=== PATIENT | male | born 1995 | race Caucasian/White ===

== ENCOUNTER 2020-11-12 19:46 | Emergency (ER) | payer SELFPAY ==
[~2020-11-12 19:46] MED LIST: Iopamidol 370 76% 100 ML VIAL ONE
[2020-11-12 20:33] LABS: #Basophils 0.1 thou/uL (0.0-0.2); #Eosinphils 0.4 thou/uL (0.0-0.7); #Lymphocytes 4.2 thou/uL (1.20-3.40); #Monocytes 0.9 thou/uL (0.11-0.59); #Neutrophils 9.3 thou/uL (1.40-6.50); %Basophils 0.9 % (0.0-1.0); %Eosinophils 2.7 % (0.0-10.0); %Lymphocytes 28.1 % (21.0-51.0); %Monocytes 5.8 % (0.0-10.0); %Neutrophils 62.4 % (42.0-75.0); Hemoglobin 16.7 g/dL (14.0-18.0); Mean Corpuscular HGB CONC 34.1 g/dL (32.0-36.0); Mean Corpuscular Hemoglobin 29.3 pg (27.0-31.0); Mean Platelet Volume 9.7 fL (7.4-10.4); Platelet Count 296 thou/uL (130-400); RBC Distribution Width 10.9 % (11.5-14.5); Red Blood Cell (RBC) Count 5.69 mill/uL (4.70-6.10); White Blood Cell (WBC) Count 14.9 thou/uL (4.8-10.8)
[2020-11-12 20:49] LABS: ALT (SGPT) 16 U/L (8-55); AST (SGOT) 15 U/L (5-34); Alkaline Phosphatase 61 U/L (40-110); Anion Gap 17 mmol/L (10-20); BUN (Urea Nitrogen) 10 mg/dL (8.9-20.6); Bilirubin, Total 0.3 mg/dL (0.2-1.2); CK (CPK) 95 U/L (30-200); Calc. Creatinine Clearance 0 mL/min (70-130); Calcium 9.9 mg/dL (7.8-10.44); Carbon Dioxide 27 mmol/L (22-29); Chloride 103 mmol/L (98-107); Globulin 3.4 g/dL (2.4-3.5); Glucose 98 mg/dL (70-105); Lipase 24 U/L (8-78); Potassium 3.7 mmol/L (3.5-5.1); Protein, Total 8.4 g/dL (6.0-8.3); Sodium 143 mmol/L (136-145)
[2020-11-12 20:56] LABS: PTT 32.5 sec (22.9-36.1); Prothrombin Time 13.1 sec (12.0-14.7)
== END 2020-11-12 22:19 | disposition home or self-care (01) ==
LOC: BURERS 19:46
DX: R07.89 Other chest pain (principal); Z79.01 Long term (current) use of anticoagulants; F17.210 Nicotine dependence, cigarettes, uncomplicated
CPT/HCPCS: 71275; 80053; 82550; 83690; 84484; 85025; 85610; 85730; 93005; Q9967

== ENCOUNTER 2020-12-29 10:32 | Emergency (ER) | payer OTHER, SELFPAY | END 2020-12-29 10:52 | disposition home or self-care (01) | LOC: BURERS 10:32 | DX: R51.9 Headache, unspecified (principal); F17.210 Nicotine dependence, cigarettes, uncomplicated; Z79.01 Long term (current) use of anticoagulants | CPT/HCPCS: 99283 ==

== ENCOUNTER 2021-04-16 21:03 | Emergency (ER) | payer SELFPAY | END 2021-04-16 21:20 | disposition left against medical advice (07) | LOC: BURERS 21:03 | DX: Z53.21 Procedure and treatment not carried out due to patient leaving prior to being seen by health care provider (principal) ==

== ENCOUNTER 2022-11-17 21:14 | Emergency (ER) | payer OTHER, SELFPAY | END 2022-11-17 21:42 | disposition home or self-care (01) | LOC: BURERS 21:14 | DX: R51.9 Headache, unspecified (principal); F17.210 Nicotine dependence, cigarettes, uncomplicated | CPT/HCPCS: 99283 ==

== ENCOUNTER 2022-12-15 20:46 | Emergency (ER) | payer OTHER ==
[2022-12-15] MEDS ORDERED: Ibuprofen 800 MG TAB ONE (21:15)
== END 2022-12-15 21:18 | disposition home or self-care (01) ==
LOC: BURERS 20:46
DX: S16.1XXA Strain of muscle, fascia and tendon at neck level, initial encounter (principal); F17.210 Nicotine dependence, cigarettes, uncomplicated; X50.0XXA Overexertion from strenuous movement or load, initial encounter
CPT/HCPCS: 99283

== ENCOUNTER 2024-01-08 00:05 | Emergency (ER) | payer OTHER ==
[2024-01-08] MEDS ORDERED: Tetracaine 0.5% PF 4 ML BOT ONE (00:15)
== END 2024-01-08 00:33 | disposition home or self-care (01) ==
LOC: BURERS 00:05
DX: H57.12 Ocular pain, left eye (principal); F17.210 Nicotine dependence, cigarettes, uncomplicated
CPT/HCPCS: 99283